=== PATIENT | female | born 1985 | race Hispanic/Latino ===

== ENCOUNTER 2016-11-29 15:32 | Emergency (ER) | payer OTHER ==
[2016-11-29 15:33] VITALS: BMI 27.4
[2016-11-29 15:56] VITALS: RESP 16; TEMP 99.3; O2SAT 100
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
[2016-11-29 17:52] VITALS: BP 145/91; PULSE 75
--- NOTE | 2016-11-29 17:57 | RAD ---
PROCEDURE: Cervical Spine Radiographs. HISTORY: She Pain. No history of recent/ related trauma provided COMPARISON: None. FINDINGS: BONES: Reversal of the anatomic lordosis with kyphosis No radiographic evidence of fracture. Widely patent neural foramen. Preservation of C1-C2 relationship. DISC SPACES: Normal. SOFT TISSUES: Normal. No prevertebral soft tissue swelling. OTHER FINDINGS: None. IMPRESSION: Normal cervical spine radiographs Concordant results with the preliminary interpretation rendered by the emergency department physician procedure.
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
== END 2016-11-29 18:18 | disposition home or self-care (01) ==
LOC: ED 15:32
DX: S16.1XXA Strain of muscle, fascia and tendon at neck level, initial encounter (principal); V49.49XA Driver injured in collision with other motor vehicles in traffic accident, initial encounter; Y92.410 Unspecified street and highway as the place of occurrence of the external cause; M54.9 Dorsalgia, unspecified
CPT/HCPCS: 72050; 72110; 96372; 99284; J1885